=== PATIENT | male | born 1955 | race Asian ===

== ENCOUNTER 2017-05-06 07:34 | Emergency (ER) | payer OTHER, MEDICARE ==
[~2017-05-06] VITALS: Ht 167.6 cm; Wt 122.7 kg
[~2017-05-06 07:34] MED LIST: ASPI-621 PO; ATOR10TA PO; INSU100C SC; INSU100V8 SQ; LISI5TAB7 PO; METF500T4 PO
[2017-05-06 07:48] VITALS: BP 157/65
[2017-05-06] MEDS ORDERED: IBUPROFEN 200 MG TABLET ONE (08:24)
[2017-05-06] MEDS ORDERED: HYDROcodone/APAP 5/325 TABLET ONE (08:24)
[2017-05-06] MEDS ORDERED: IBUPROFEN 200 MG TABLET PO ONE (08:30)
[2017-05-06] MEDS ORDERED: HYDROcodone/APAP 5/325 TABLET PO ONE (08:30)
== END 2017-05-06 08:47 | disposition home or self-care (01) ==
LOC: ED 08:41
DX: K02.9 Dental caries, unspecified (principal); R01.1 Cardiac murmur, unspecified; K08.89 Other specified disorders of teeth and supporting structures; I10 Essential (primary) hypertension; E78.5 Hyperlipidemia, unspecified; E11.9 Type 2 diabetes mellitus without complications
CPT/HCPCS: 99283

== ENCOUNTER → 2018-09-09 | Outpatient (CLI) | payer MEDICARE ==
[~2018-09-09] MED LIST changes: -ASPI-621 PO; +ASPI81TA45 PO; +METF500T17 PO; -METF500T4 PO
== END | disposition home or self-care (01) ==
LOC: RAD 11:19
PROVIDERS: ATTEND Family Medicine
DX: M19.012 Primary osteoarthritis, left shoulder (principal); M75.32 Calcific tendinitis of left shoulder; M25.712 Osteophyte, left shoulder

== ENCOUNTER 2019-03-01 11:18 | Emergency (ER) | payer MEDICARE ==
[~2019-03-01] VITALS: Ht 167.6 cm; Wt 125.3 kg
[2019-03-01 12:09] LABS: BASOPHILS # (AUTO) 0.03 x10^3/uL (0-0.1); BASOPHILS % (AUTO) 0 % (0-1); EOSINOPHILS # (AUTO) 0.17 x10^3/uL (0-0.4); EOSINOPHILS % (AUTO) 2 % (1-7); LYMPHOCYTES # (AUTO) 1.16 x10^3/uL (1-3.4); LYMPHOCYTES % (AUTO) 12 % (22-44); MD NO; MEAN CORPUSCULAR HEMOGLOBIN 28.2 pg (27.5-34.5); MEAN CORPUSCULAR HGB CONC 32.2 g/dL (33.2-36.2); MEAN CORPUSCULAR VOLUME 87.8 fL (81-97); MEAN PLATELET VOLUME 9.3 fL (7.4-10.4); MONOCYTES # (AUTO) 0.77 x10^3/uL (0.2-0.8); MONOCYTES % (AUTO) 8 % (2-9); NEUTROPHILS # (AUTO) 7.27 x10^3/uL (1.8-6.8); NEUTROPHILS % (AUTO) 77 % (42-75); PLATELET COUNT 164 x10^3/uL (130-400); RED BLOOD COUNT 6.16 x10^6/uL (4.38-5.82); RED CELL DISTRIBUTION WIDTH 16.3 % (9.4-14.8)
[2019-03-01 12:20] LABS: ALBUMIN 3.8 g/dL (3.4-5.0); ANION GAP 8 mmol/L (5-15); CHLORIDE 104 mmol/L (98-107)
--- NOTE | 2019-03-01 12:23 | NUR ---
urine specimen cup given
[2019-03-01 12:24] LABS: ALANINE AMINOTRANSFERASE 34 U/L (12-78); ALKALINE PHOSPHATASE 75 U/L (45-117); CREATININE 1.12 mg/dL (0.7-1.3); TOTAL PROTEIN 8.7 g/dL (6.4-8.2)
[2019-03-01] MEDS ORDERED: ONDANSETRON 2MG/ML, 2ML IVPush ONE (12:30)
[2019-03-01] MEDS ORDERED: MORPHINE SULFATE 4 MG/ML, 1ML IVPush PRN (12:30)
[2019-03-01] MEDS ORDERED: LEVEMIR (12:50)
--- NOTE | 2019-03-01 12:53 | NUR ---
PT TO ED FOR RIGHT SIDED AND PERIUMBILICAL ABD PAIN SINCE THIS MORNING. PT DENIES N/V. PT CONNECTED TO MONITORS. VSS. AWAITING LAB RESULTS.
[2019-03-01] MEDS ORDERED: MORPHINE SULFATE 4 MG/ML, 1ML ONE (13:04)
[2019-03-01] MEDS ORDERED: ONDANSETRON 2MG/ML, 2ML ONE (13:04)
--- NOTE | 2019-03-01 13:08 | NUR ---
PT RESTING IN ROOM WITH FAMILY AT BS. NO NEEDS EXPRESSED. VSS. UA COLLECTED AND SENT. IV ESTABLISHED AND PT MEDICATED PER OCT. AWAITING US RESULTS.
[2019-03-01 13:19] LABS: CULTURE INDICATED? NO; MICROSCOPIC AUTO
[2019-03-01 14:02] VITALS: BP 141/77
== END 2019-03-01 14:23 | disposition home or self-care (01) ==
LOC: ED 13:51
DX: K80.20 Calculus of gallbladder without cholecystitis without obstruction (principal); E11.9 Type 2 diabetes mellitus without complications; I10 Essential (primary) hypertension; E78.5 Hyperlipidemia, unspecified; M10.9 Gout, unspecified
CPT/HCPCS: 36415; 76700; 80053; 81001; 83690; 85025; 96374; 96375; 99284; J2270; J2405

== ENCOUNTER 2019-08-10 14:43 | Emergency (ER) | payer MEDICARE ==
[~2019-08-10] VITALS: Ht 180.3 cm; Wt 126.6 kg
[~2019-08-10 14:43] MED LIST changes: +LEVEMIR
[2019-08-10 15:24] LABS: BASOPHILS # (AUTO) 0.01 x10^3/uL (0-0.1); BASOPHILS % (AUTO) 0 % (0-1); EOSINOPHILS # (AUTO) 0.25 x10^3/uL (0-0.4); EOSINOPHILS % (AUTO) 3 % (1-7); LYMPHOCYTES # (AUTO) 0.59 x10^3/uL (1-3.4); LYMPHOCYTES % (AUTO) 6 % (22-44); MD NO; MEAN CORPUSCULAR HEMOGLOBIN 28.4 pg (27.5-34.5); MEAN CORPUSCULAR HGB CONC 31.9 g/dL (33.2-36.2); MEAN CORPUSCULAR VOLUME 89.1 fL (81-97); MEAN PLATELET VOLUME 10.5 fL (7.4-10.4); MONOCYTES # (AUTO) 0.48 x10^3/uL (0.2-0.8); MONOCYTES % (AUTO) 5 % (2-9); NEUTROPHILS # (AUTO) 8.81 x10^3/uL (1.8-6.8); NEUTROPHILS % (AUTO) 87 % (42-75); PLATELET COUNT 149 x10^3/uL (130-400); RED BLOOD COUNT 6.52 x10^6/uL (4.38-5.82); RED CELL DISTRIBUTION WIDTH 16.1 % (9.4-14.8)
[2019-08-10 15:29] LABS: ALANINE AMINOTRANSFERASE 34 U/L (12-78); ANION GAP 5 mmol/L (5-15); CALCIUM 8.6 mg/dL (8.5-10.1); CHLORIDE 108 mmol/L (98-107)
[2019-08-10 15:32] LABS: ALKALINE PHOSPHATASE 68 U/L (45-117); BILIRUBIN,TOTAL 0.6 mg/dL (0.2-1.0); TOTAL PROTEIN 8.8 g/dL (6.4-8.2)
[2019-08-10 15:40] LABS: MICROSCOPIC AUTO
[2019-08-10 15:44] LABS: CULTURE INDICATED? NO
--- NOTE | 2019-08-10 16:18 | NUR ---
Pt to rm 30 from lobby
[2019-08-10] MEDS ORDERED: ISOS30TA8 PO (16:43)
[2019-08-10] MEDS ORDERED: LOSA50TA14 PO (16:43)
[2019-08-10] MEDS ORDERED: ATOR-2 PO (16:43)
[2019-08-10] MEDS ORDERED: LINA1TAB5 PO (16:43)
[2019-08-10] MEDS ORDERED: METO25TA35 PO (16:43)
[2019-08-10] MEDS ORDERED: GLIM4TAB4 PO (16:43)
--- NOTE | 2019-08-10 16:46 | NUR ---
pt to ed for ruq abd pain since yesterday. pt denies n/v/d/f/c. recent alyce. pt connected to all monitors. vss. warm blanket provided for comfort. no other needs expressed. call light within reach. Dr. Nolasco to bs. awaiting further orders.
--- NOTE | 2019-08-10 16:51 | NUR ---
task rn: RECEIVED BEDSIDE REPORT FROM JEREMÍAS KAUR. PT INTERMITTENTLY SLEEPING ON GURNEY IN SUPINE POSITION. SHAYLA
[2019-08-10] MEDS ORDERED: HYDROmorphone 2 MG/ML, 1ML IVPush PRN (17:00)
[2019-08-10] MEDS ORDERED: ONDANSETRON 2MG/ML, 2ML IVPush ONE (17:00)
[2019-08-10] MEDS ORDERED: SODIUM CHLORIDE FLUSH 10ML SYR IVF ONE (17:00)
[2019-08-10] MEDS ORDERED: SODIUM CHLORIDE 0.9% 1,000ML IVBOLUS ONE (17:00)
--- NOTE | 2019-08-10 17:08 | NUR ---
TASK RN: PIV ESTABLISHED. PT NOW BEING TAKEN TO IMAGING. BEDSIDE. SHAYLA
[2019-08-10] MEDS ORDERED: OMNIPAQUE 350 MG/ML, 100ML BOTTLE ONE ×2 (17:31→17:32)
--- NOTE | 2019-08-10 17:32 | NUR ---
TASK RN: BEDSIDE REPORT TO JEREMÍAS KAUR. PT BACK FROM IMAGING.
[2019-08-10 17:43] VITALS: BP 160/83
--- NOTE | 2019-08-10 17:44 | NUR ---
PT RESTING IN ROOM .VSS. PLAN TO DC.
== END 2019-08-10 18:13 | disposition home or self-care (01) ==
LOC: ED 18:08
DX: R10.11 Right upper quadrant pain (principal); R19.7 Diarrhea, unspecified; I10 Essential (primary) hypertension; E11.9 Type 2 diabetes mellitus without complications
CPT/HCPCS: 36415; 74177; 76700; 80053; 81001; 83690; 85025; 99284; J7030; Q9967